=== PATIENT | male | born 1990 | race African-American/Black ===

== ENCOUNTER 2023-07-29 07:58 | Emergency (ER) | payer SELFPAY ==
[2023-07-29 08:00] VITALS: BP 135/80
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
[2023-07-29] MEDS: TORADOL 30 MG IM (09:26)
[2023-07-29 09:52] VITALS: BP 97/79
== END 2023-07-29 10:02 | disposition home or self-care (01) ==
LOC: EMR 07:58
PROVIDERS: EMERGENCY PHYSICIAN Emergency Medicine
DX: S13.4XXA Sprain of ligaments of cervical spine, initial encounter (principal); S39.012A Strain of muscle, fascia and tendon of lower back, initial encounter; S46.912A Strain of unspecified muscle, fascia and tendon at shoulder and upper arm level, left arm, initial encounter; S20.219A Contusion of unspecified front wall of thorax, initial encounter; V43.52XA Car driver injured in collision with other type car in traffic accident, initial encounter; Y92.410 Unspecified street and highway as the place of occurrence of the external cause; F17.200 Nicotine dependence, unspecified, uncomplicated
CPT/HCPCS: 99284; 96372; 71111; 72040; 72100; 73030